=== PATIENT | female | born 1935 | race Two or more races ===

== ENCOUNTER 2017-03-28 16:09 | Inpatient (IN) | payer MEDICARE, MEDICAID ==
[~2017-03-28] VITALS: Ht 154.9 cm; Wt 58.1 kg
[2017-03-28] MEDS ORDERED: Cefepime HCl 1 GM in NS 55 ML IV SCH (16:30)
[2017-03-28] MEDS ORDERED: Vancomycin 750 MG in NS 275 ML IVPB ONE (16:30)
[2017-03-28] MEDS ORDERED: Vancomycin 750mg Inj IVPB ONE (17:02)
[2017-03-28 17:07] LABS: BASOPHILS % (AUTO) 0.7 % (0.0-2.0); EOSINOPHILS % (AUTO) 2.1 % (0.0-3.0); LYMPHOCYTES % (AUTO) 33.4 % (20.0-45.0); MEAN CORPUSCULAR HEMOGLOBIN 29.8 PG (27.0-31.0); MEAN CORPUSCULAR HGB CONC 31.7 G/DL (32.0-36.0); MEAN CORPUSCULAR VOLUME 94 FL (80-99); MEAN PLATELET VOLUME 5.6 FL (6.5-10.1); MONOCYTES % (AUTO) 8.5 % (1.0-10.0); NEUTROPHILS % (AUTO) 55.2 % (45.0-75.0); PLATELET COUNT 244 K/UL (150-450); RED BLOOD COUNT 3.64 M/UL (4.20-5.40); WHITE BLOOD COUNT 7.2 K/UL (4.8-10.8)
[2017-03-28] MEDS ORDERED: OMEPRAZOLE20 M3 ORAL (17:07)
[2017-03-28] MEDS ORDERED: PRO-STAT LIQUID30 ML ORAL (17:07)
[2017-03-28] MEDS ORDERED: ACETAMINOPHEN325 M1 ORAL (17:07)
[2017-03-28] MEDS ORDERED: ASCORBIC ACID500 MG ORAL (17:07)
[2017-03-28] MEDS ORDERED: SINEMET 25-1001 EAC1 ORAL (17:10)
[2017-03-28] MEDS ORDERED: PROPRANOLOL HCL20 MG ORAL (17:10)
[2017-03-28] MEDS ORDERED: LINZESS290 MCG PO (17:10)
[2017-03-28] MEDS ORDERED: SEROQUEL25 MG ORAL ×2 (17:10→17:19)
[2017-03-28] MEDS ORDERED: LOVENOX10 M1 SUBQ (17:10)
[2017-03-28] MEDS ORDERED: lidocaine 5% TOPIC (17:10)
[2017-03-28] MEDS ORDERED: PANTOPRAZOLE SO40 MG ORAL (17:13)
[2017-03-28] MEDS ORDERED: CALCIUM + D3 E1 EACH PO (17:13)
[2017-03-28] MEDS ORDERED: VITAMIN B-12500 MCG ORAL (17:13)
[2017-03-28] MEDS ORDERED: DONEPEZIL HCL10 M2 ORAL (17:13)
[2017-03-28] MEDS ORDERED: CARBAMAZEPINE200 MG ORAL (17:13)
[2017-03-28 17:14] LABS: APPEARANCE,URINE CLEAR; KETONES,URINE 1+ (NEGATIVE); LEUKOCYTE ESTERASE ,URINE 3+ (NEGATIVE); NITRITE,URINE POSITIVE (NEGATIVE); PH,URINE 6 (4.5-8.0); PROTEIN,URINE 2+ (NEGATIVE); UROBILINOGEN,URINE NORMAL MG/DL (0.0-1.0)
[2017-03-28] MEDS ORDERED: MULTI-VITAMIN-1 EACH PO (17:14)
[2017-03-28] MEDS ORDERED: VITAMIN D250000 UNI1 ORAL (17:14)
[2017-03-28] MEDS ORDERED: CRESTOR10 M2 ORAL (17:15)
[2017-03-28 17:16] LABS: PROTHROMBIN TIME 10.6 SEC (9.30-11.50); TROPONIN I < 0.30 ng/mL (<=0.30)
[2017-03-28] MEDS ORDERED: BISACODYL10 M1 RC (17:17)
[2017-03-28] MEDS ORDERED: MILK OF MA400 MG/51 ORAL (17:17)
[2017-03-28] MEDS ORDERED: IMITREX50 MG ORAL (17:17)
[2017-03-28] MEDS ORDERED: ALPRAZOLAM0.25 MG ORAL (17:19)
[2017-03-28] MEDS ORDERED: NORCO 5-325 TA1 EAC1 ORAL (17:19)
[2017-03-28 17:25] LABS: BACTERIA,URINE MODERATE /HPF; SQUAMOUS EPITHELIAL CELL,UR FEW /LPF (NONE/OCC)
[2017-03-28 17:26] LABS: AMORPHOUS SEDIMENT,UR FEW /LPF
[2017-03-28 17:41] LABS: ALANINE AMINOTRANSFERASE 5 U/L (3-33); ALBUMIN/GLOBULIN RATIO 0.9 (1.0-2.7); ANION GAP 14 (5-15); ASPARTATE AMINO TRANSFERASE 17 U/L (5-40); CALCIUM 8.4 mg/dL (8.6-10.2); CARBON DIOXIDE 27 mEQ/L (20-30); CHLORIDE 100 mEQ/L (98-107); CREATININE 0.6 mg/dL (0.5-0.9); HEMOLYSIS 21; POTASSIUM 4.3 mEQ/L (3.4-4.9); SODIUM 141 mEQ/L (135-145)
[2017-03-28] MEDS ORDERED: LORazepam Inj 2mg/ml 1ml IV ONE (17:45)
[2017-03-28 17:52] LABS: CKMB < 1.5 ng/mL (< 3.8)
[2017-03-28 18:22] VITALS: BP_SYST 111; BP_SYST 134; BP_DIAS 57; BP_DIAS 66
[2017-03-28 19:46] VITALS: BP 140/65
--- NOTE | 2017-03-28 19:52 | Emergency Room Report ---
History of Present Illness General Chief Complaint: Generalized Weakness Source: Medical Record, EMS Present Illness HPI The patient is brought in for altered mentation, failure to thrive and possible infection. [facility] 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 She is disoriented which appears to be her baseline. She has a chronic indwelling Hernández catheter. She is not coughing at this time. Further history is unavailable except for the medical record. Allergies: Coded Allergies: GABAPENTIN (Unverified Allergy, Unknown, 03/28/17) PRAMIPEXOLE (Unverified Allergy, Unknown, 03/28/17) Uncoded Allergies: NEURPO (Allergy, Unknown, 03/28/17) Patient History Limited by: medical condition Past Medical History: see triage record Social History Narrative SNF Reviewed Nursing Documentation: PMH: Agreed, PSxH: Agreed Nursing Documentation-PMH Past Medical History: No History, Except For Hx Hypertension: Yes Review of Systems All Other Systems: limited Physical Exam Vital Signs Date Time Temp Pulse Resp B/P Pulse Ox O2 Delivery O2 Flow Rate FiO2 03/28/17 16:05 98.6 80 16 111/66 93 Room Air Sp02 EP Interpretation: reviewed, abnormal - interpreted as low by me General Appearance: alert, Chronically Ill Head: normocephalic Eyes: bilateral eye PERRL, bilateral eye normal inspection ENT: moist mucus membranes Neck: supple Respiratory: lungs clear, normal breath sounds Cardiovascular #1: regular rate, rhythm Cardiovascular #2: 2+ radial (R) Gastrointestinal: normal inspection, normal bowel sounds, non tender, no mass, non-distended Genitourinary: other - hernández Musculoskeletal: back normal, gait/station normal, normal range of motion Neurologic: alert, motor strength/tone normal - UE, speech normal, motor weakness - LE, other - resting tremor, loquatious Psychiatric: anxious Skin: normal inspection, warm/dry Medical Decision Making Diagnostic Impression: Primary Impression: UTI (urinary tract infection) Qualified Codes: N30.00 - Acute cystitis without hematuria Additional Impression: Failure to thrive Qualified Codes: R62.7 - Adult failure to thrive ER Course The patient was sent to the hospital for alleged failure to thrive. Differential includes acute myocardial infarction, likely abnormality,, occult infection, exacerbation of dementia amongst others. Evaluation will be undertaken with EKG, chest x-ray labs including blood cultures lactate with urinalysis. The patient will receive IV hydration. The patient is quite agitated and Ativan is given. She's calmer after receiving Ativan. EKG is unremarkable. Labs reveal a white count and alert CXR no infiltrate. Discussed with Dr. Hennessy. Admit med. Laboratory Tests Test 03/28/17 16:35 White Blood Count 7.2 K/UL (4.8-10.8) Red Blood Count 3.64 M/UL (4.20-5.40) L Hemoglobin 10.8 G/DL (12.0-16.0) L Hematocrit 34.2 % (37.0-47.0) L Mean Corpuscular Volume 94 FL (80-99) Mean Corpuscular Hemoglobin 29.8 PG (27.0-31.0) Mean Corpuscular Hemoglobin Concent 31.7 G/DL (32.0-36.0) L Red Cell Distribution Width 15.0 % (11.6-14.8) H Platelet Count 244 K/UL (150-450) Mean Platelet Volume 5.6 FL (6.5-10.1) L Neutrophils (%) (Auto) 55.2 % (45.0-75.0) Lymphocytes (%) (Auto) 33.4 % (20.0-45.0) Monocytes (%) (Auto) 8.5 % (1.0-10.0) Eosinophils (%) (Auto) 2.1 % (0.0-3.0) Basophils (%) (Auto) 0.7 % (0.0-2.0) Prothrombin Time 10.6 SEC (9.30-11.50) Prothrombin Time INR 1.0 (0.9-1.1) PTT 29 SEC (23-33) Urine Color Yellow Urine Appearance Clear Urine pH 6 (4.5-8.0) Urine Specific [place] 1.020 (1.005-1.035) Urine Protein 2+ (NEGATIVE) H Urine Glucose (UA) Negative (NEGATIVE) Urine Ketones 1+ (NEGATIVE) H Urine Occult Blood 2+ (NEGATIVE) H Urine Nitrite Positive (NEGATIVE) H Urine Bilirubin Negative (NEGATIVE) Urine Urobilinogen Normal MG/DL (0.0-1.0) Urine Leukocyte Esterase 3+ (NEGATIVE) H Urine RBC 5-10 /HPF (0 - 2) H Urine WBC 10-15 /HPF (0 - 2) H Urine Squamous Epithelial Cells Few /LPF (NONE/OCC) Urine Amorphous Sediment Few /LPF (NONE) H Urine Bacteria Moderate /HPF (NONE) H Sodium Level 141 mEQ/L (135-145) Potassium Level 4.3 mEQ/L (3.4-4.9) Chloride Level 100 mEQ/L (98-107) Carbon Dioxide Level 27 mEQ/L (20-30) Anion Gap 14 (5-15) Blood Urea Nitrogen 16 mg/dL (7-23) Creatinine 0.6 mg/dL (0.5-0.9) Estimate Glomerular Filtration Rate mL/min (>60) Glucose Level 105 mg/dL (74-106) Lactic Acid Level 1.10 mmol/L (0.66-2.22) Calcium Level 8.4 mg/dL (8.6-10.2) L Total Bilirubin 0.2 mg/dL (0.0-1.2) Aspartate Amino Transferase (AST) 17 U/L (5-40) Alanine Aminotransferase (ALT) 5 U/L (3-33) Alkaline Phosphatase 150 U/L (35-104) H Total Creatine Kinase 37 U/L (26-140) Creatine Kinase MB < 1.5 ng/mL (< 3.8) Creatine Kinase MB Relative Index Troponin I < 0.30 ng/mL (<=0.30) Pro-B-Type Natriuretic Peptide 692 pg/mL (0-450) H Total Protein 6.0 g/dL (6.6-8.7) L Albumin 2.9 g/dL (3.5-5.2) L Globulin 3.1 g/dL Albumin/Globulin Ratio 0.9 (1.0-2.7) L EKG Diagnostic Results Rate: normal Rhythm: NSR ST Segments: no acute changes - LASD RBBB Rhythm Strip Diag. Results EP Interpretation: yes Rhythm: NSR, no PVC's, no ectopy Chest X-Ray Diagnostic Results Chest X-Ray Ordered: Yes # of Views/Limited/Complete: 1 View EP Interpretation: Yes Interpretation: no consolidation, no effusion, no pneumothorax, no acute cardiopulmonary disease, other - increased cor Indication: Other Impression: Other Interpreting ER Provider: [place] Last Vital Signs Date Time Temp Pulse Resp B/P Pulse Ox O2 Delivery O2 Flow Rate FiO2 03/28/17 22:04 98.6 66 15 172/76 97 Room Air Status: improved Disposition: ADMITTED INPATIENT Condition: Serious Referrals: LEOPOLDO RUIZ (PCP) Tadeo Fragoso M.D. Mar 28, 2017 19:52
[2017-03-28] MEDS ORDERED: DOCUSATE SODIU100 MG ORAL (20:41)
[2017-03-28] MEDS ORDERED: SUMAtriptan 100mg tab ORAL PRN (20:45)
[2017-03-28] MEDS ORDERED: Miralax 17gm pkt ORAL PRN (20:45)
[2017-03-28] MEDS ORDERED: Milk of Magnesia 30ml Ud ORAL PRN (20:45)
[2017-03-28] MEDS ORDERED: ALPRAZolam 0.25mg tab ORAL PRN (20:45)
--- NOTE | 2017-03-28 20:49 | History and Physical ---
History of Present Illness General Date patient seen: Mar 28, 2017 Time patient seen: 20:49 Reason for Hospitalization: AMS, generalized weakness Present Illness HPI 81 year oldfemalewith pmh of HTN, Parkinson's disease, dementia, chronic b/l lower back pain w/ R sided sciatica, myofascial pain, lumbar radiculopathy, recent R femoral neck fracture s/p R total hip replacement (02/24/17), DVT (on lovenox) who presents form SNF with AMS and generalized weakness. Pt denies pain. She is noted to be confused, only A&Ox1 to name. Pt with chronic indwelling hernández catheter. No reports of SOB, abd pain, cough, f/c, n/v, d/c. Pt noted to be increasingly weak. Pt also w/ multiple pressure ulcers. In ED, pt noted to have positive U/A. She was given vanco, cefepime and levaquin , as well as 1L NS bolus. Allergies: Coded Allergies: GABAPENTIN (Unverified Allergy, Unknown, 03/28/17) PRAMIPEXOLE (Unverified Allergy, Unknown, 03/28/17) Uncoded Allergies: NEURPO (Allergy, Unknown, 03/28/17) Medication History Scheduled Amino Acids/Protein Hydrolys (Pro-Stat Liquid), 30 ML ORAL TID, (Reported) Ascorbic Acid* (Ascorbic Acid*), 500 MG ORAL TWICE A DAY, (Reported) Calcium Carb & Cit/Vitamin D3 (Calcium + D3 Er Tablet), 1 EACH PO DAILY, ( Reported) Carbamazepine* (Carbamazepine*), 200 MG ORAL DAILY, (Reported) Carbidopa/Levodopa 25-100 Mg* (Sinemet 25-100 Mg Tablet*), 1.5 TAB ORAL THREE TIMES A DAY, (Reported) Cyanocobalamin (Vitamin B-12)* (Vitamin B-12*), 1,000 MCG ORAL DAILY, (Reported) Docusate Sodium* (Docusate Sodium*), 100 MG ORAL TWICE A DAY, (Reported) Donepezil Hcl* (Donepezil Hcl*), 10 MG ORAL DAILY, (Reported) Enoxaparin* (Lovenox*), 60 MG SUBQ EVERY 12 HOURS, (Reported) Ergocalciferol (Vitamin D2)* (Vitamin D*), 50,000 UNIT ORAL ONCE A WEEK, ( Reported) Multivit-Min/Iron Fum/Folic AC (Wasij-Iwcejww-Dlyxvilk Tablet), 1 EACH PO DAILY, (Reported) Omeprazole (Omeprazole), 20 MG ORAL DAILY, (Reported) Pantoprazole* (Pantoprazole*), 40 MG ORAL DAILY, (Reported) Propranolol Hcl* (Inderal*), 20 MG ORAL BID, (Reported) Quetiapine Fumarate* (Seroquel*), 25 MG ORAL BEDTIME, (Reported) Rosuvastatin Calcium* (Crestor*), 10 MG ORAL DAILY, (Reported) [lidocaine 5%], 2 PATCH TOPIC DAILY, (Reported) Scheduled PRN Acetaminophen* (Acetaminophen 325MG Tablet*), 650 MG ORAL Q6H PRN for For Pain, (Reported) Alprazolam* (Xanax*), 0.25 MG ORAL BID PRN for For Anxiety, (Reported) Bisacodyl (Bisacodyl), 10 MG RC DAILY PRN for Constipation, (Reported) Hydrocodone Bit/Acetaminophen 5-325* ([place] 5-325 Tablet*), 1 TAB ORAL Q4H PRN for For Pain, (Reported) Linaclotide (Linzess), 290 MCG PO DAILY PRN for Constipation, (Reported) Magnesium Hydroxide* (Milk Of Magnesia*), 30 ML ORAL DAILY PRN for Constipation, (Reported) Quetiapine Fumarate* (Seroquel*), 25 MG ORAL THREE TIMES A DAY PRN for Agitation , (Reported) Sumatriptan Succinate* (Imitrex*), 10 MG ORAL DAILY PRN for MIGRAINE, (Reported) Patient History History Provided By: Patient, Medical Record, PMD Healthcare decision maker Resuscitation status Advanced Directive on File Past Medical/Surgical History Past Medical/Surgical History: (1) Parkinson disease (2) Dementia (3) Fracture of femoral neck, right (4) History of total right hip replacement (5) HTN (hypertension) (6) DVT (deep vein thrombosis) in Family History Family History: Patient reports no known family medical history. Social History Social History: (1) lives at [facility] Review of Systems ROS Narrative Unable to obtain given AMS Physical Exam Physical Exam Narrative General: alert, cooperative, no distress, appears stated age Head: normocephalic, without obvious abnormality, atraumatic Eyes: conjunctivae/corneas clear. PERRL, EOM's intact Throat: lips, mucosa, and tongue normal. MMM Neck: supple, symmetrical, trachea midline, and no JVD Lungs: clear to auscultation bilaterally Heart: regular rate and rhythm, S1, S2 normal, no murmur, click, rub or gallop Abdomen: soft, non-tender, non-distended, bowel sounds normal; no masses or organomegaly Extremities: extremities normal, atraumatic, no cyanosis or edema : +hernández Pulses: 2+ and symmetric Skin: skin color, texture, turgor normal; no rashes or lesions Neurologic: grossly normal, no focal deficits Last 24 Hour Vital Signs Date Time Temp Pulse Resp B/P Pulse Ox O2 Delivery O2 Flow Rate FiO2 03/28/17 19:46 98.6 72 18 140/65 97 Room Air 03/28/17 18:22 98.7 73 16 134/57 99 Room Air 03/28/17 16:05 98.6 80 16 111/66 93 Room Air Laboratory Tests Test 03/28/17 16:35 White Blood Count 7.2 K/UL (4.8-10.8) Red Blood Count 3.64 M/UL (4.20-5.40) L Hemoglobin 10.8 G/DL (12.0-16.0) L Hematocrit 34.2 % (37.0-47.0) L Mean Corpuscular Volume 94 FL (80-99) Mean Corpuscular Hemoglobin 29.8 PG (27.0-31.0) Mean Corpuscular Hemoglobin Concent 31.7 G/DL (32.0-36.0) L Red Cell Distribution Width 15.0 % (11.6-14.8) H Platelet Count 244 K/UL (150-450) Mean Platelet Volume 5.6 FL (6.5-10.1) L Neutrophils (%) (Auto) 55.2 % (45.0-75.0) Lymphocytes (%) (Auto) 33.4 % (20.0-45.0) Monocytes (%) (Auto) 8.5 % (1.0-10.0) Eosinophils (%) (Auto) 2.1 % (0.0-3.0) Basophils (%) (Auto) 0.7 % (0.0-2.0) Prothrombin Time 10.6 SEC (9.30-11.50) Prothromb Time International Ratio 1.0 (0.9-1.1) Activated Partial Thromboplast Time 29 SEC (23-33) Urine Color Yellow Urine Appearance Clear Urine pH 6 (4.5-8.0) Urine Specific [place] 1.020 (1.005-1.035) Urine Protein 2+ (NEGATIVE) H Urine Glucose (UA) Negative (NEGATIVE) Urine Ketones 1+ (NEGATIVE) H Urine Occult Blood 2+ (NEGATIVE) H Urine Nitrite Positive (NEGATIVE) H Urine Bilirubin Negative (NEGATIVE) Urine Urobilinogen Normal MG/DL (0.0-1.0) Urine Leukocyte Esterase 3+ (NEGATIVE) H Urine RBC 5-10 /HPF (0 - 2) H Urine WBC 10-15 /HPF (0 - 2) H Urine Squamous Epithelial Cells Few /LPF (NONE/OCC) Urine Amorphous Sediment Few /LPF (NONE) H Urine Bacteria Moderate /HPF (NONE) H Sodium Level 141 mEQ/L (135-145) Potassium Level 4.3 mEQ/L (3.4-4.9) Chloride Level 100 mEQ/L (98-107) Carbon Dioxide Level 27 mEQ/L (20-30) Anion Gap 14 (5-15) Blood Urea Nitrogen 16 mg/dL (7-23) Creatinine 0.6 mg/dL (0.5-0.9) Estimat Glomerular Filtration Rate mL/min (>60) Glucose Level 105 mg/dL (74-106) Lactic Acid Level 1.10 mmol/L (0.66-2.22) Calcium Level 8.4 mg/dL (8.6-10.2) L Total Bilirubin 0.2 mg/dL (0.0-1.2) Aspartate Amino Transf (AST/SGOT) 17 U/L (5-40) Alanine Aminotransferase (ALT/SGPT) 5 U/L (3-33) Alkaline Phosphatase 150 U/L (35-104) H Total Creatine Kinase 37 U/L (26-140) Creatine Kinase MB < 1.5 ng/mL (< 3.8) Creatine Kinase MB Relative Index Troponin I < 0.30 ng/mL (<=0.30) Pro-B-Type Natriuretic Peptide 692 pg/mL (0-450) H Total Protein 6.0 g/dL (6.6-8.7) L Albumin 2.9 g/dL (3.5-5.2) L Globulin 3.1 g/dL Albumin/Globulin Ratio 0.9 (1.0-2.7) L Height (Feet): 5 Height (Inches): 1.00 Weight (Pounds): 110 Medications Current Medications Medications (Trade) Dose Ordered Sig/Jennifer Route PRN Reason Start Time Stop Time Status Last Admin Dose Admin Acetaminophen (Tylenol) 650 mg Q4H PRN ORAL Mild Pain (Pain Scale 1-3) 03/28/17 20:45 04/27/17 20:44 UNV Acetaminophen/ Hydrocodone Bitart ([place] 5/325) 1 tab Q4H PRN ORAL For Pain 03/28/17 20:45 04/04/17 20:44 UNV Alprazolam (Xanax) 0.25 mg BID PRN ORAL For Anxiety 03/28/17 20:45 04/04/17 20:44 UNV Ascorbic Acid (Vitamin C) 500 mg TWICE A DAY ORAL 03/29/17 09:00 04/28/17 08:59 UNV Bisacodyl (Dulcolax) 10 mg DAILY PRN RECTAL Constipation 03/28/17 20:45 04/27/17 20:44 UNV Bisacodyl (Dulcolax) 10 mg HSPRN PRN RECTAL Constipation 03/28/17 20:45 04/27/17 20:44 UNV Carbamazepine (TEGretol) 200 mg DAILY ORAL 03/29/17 09:00 04/28/17 08:59 UNV Carbidopa/Levodopa (Sinemet 25/100) 1 ea THREE TIMES A DAY ORAL 03/28/17 20:45 04/27/17 20:44 UNV Cefepime HCl 1 gm/ Sodium Chloride 55 ml @ 110 mls/hr Q12H IV 03/28/17 16:30 03/29/17 16:29 Cyanocobalamin (Vitamin B-12) 1,000 mcg DAILY ORAL 03/29/17 09:00 04/28/17 08:59 UNV Dextrose (Dextrose 50%) STAT PRN IV Hypoglycemia 03/28/17 20:45 04/27/17 20:44 UNV Docusate Sodium (Colace) 100 mg EVERY 12 HOURS ORAL 03/28/17 21:00 04/27/17 20:59 UNV Donepezil HCl (Aricept) 10 mg DAILY ORAL 03/29/17 09:00 04/28/17 08:59 UNV Enoxaparin Sodium (Lovenox) 60 mg EVERY 12 HOURS SUBQ 03/28/17 21:00 04/27/17 20:59 UNV Magnesium Hydroxide (Mom) 30 ml HSPRN PRN ORAL Constipation 03/28/17 20:45 04/27/17 20:44 UNV Ondansetron HCl (Zofran) 4 mg Q6H PRN IVP Nausea & Vomiting 03/28/17 20:45 04/27/17 20:44 UNV Pantoprazole (Protonix) 40 mg DAILY ORAL 03/29/17 09:00 04/28/17 08:59 UNV Polyethylene Glycol (Miralax) 17 gm HSPRN PRN ORAL Constipation 03/28/17 20:45 04/27/17 20:44 UNV Propranolol HCl (Inderal) 20 mg BID ORAL 03/29/17 09:00 04/28/17 08:59 UNV Quetiapine Fumarate (SEROquel) 25 mg BEDTIME ORAL 03/28/17 21:00 04/27/17 20:59 UNV Quetiapine Fumarate (SEROquel) 25 mg THREE TIMES A DAY PRN ORAL Agitation 03/28/17 20:45 04/27/17 20:44 UNV Sodium Chloride (Sodium Chloride 1000ml bag) 1,000 ml @ 300 mls/hr Q3H20M IV 03/28/17 16:30 04/27/17 16:29 03/28/17 17:03 Sumatriptan Succinate (Imitrex) 10 mg DAILY PRN ORAL MIGRAINE 03/28/17 20:45 04/27/17 20:44 UNV Assessment/Plan Problem List: (1) Acute toxic metabolic encephalopathy (2) UTI (urinary tract infection) ICD Codes: N39.0 - Urinary tract infection, site not specified SNOMED: 21910261 Qualifiers: Qualified Codes: N30.00 - Acute cystitis without hematuria (3) Failure to thrive SNOMED: 74902238 Qualifiers: Qualified Codes: R62.7 - Adult failure to thrive (4) Parkinson disease ICD Codes: G20 - Parkinson's disease SNOMED: 82707522 (5) Dementia ICD Codes: F03.90 - Unspecified dementia without behavioral disturbance SNOMED: 04344215 (6) HTN (hypertension) ICD Codes: I10 - Essential (primary) hypertension SNOMED: 57140853 (7) DVT (deep venous thrombosis) ICD Codes: I82.409 - Acute embolism and thrombosis of unspecified deep veins of unspecified lower extremity SNOMED: 699566647 Status: stable Assessment/Plan Admit inpt Cont empiric cefepime for UTI F/u urine culture F/u blood cultures Monitor mental status and neuro exam closely Check TSH, B12/folate, Vitamin D, Prealbumin PT/OT/ST Swallow eval Nutrition eval Wound care DVT Prophylaxis: SCD, Lovenox Code Status: Full Hospital Classification Declaration: Based on this initial evaluation, and depending on the patient's clinical course, I anticipate that this patient will require hospitalization for 2-3 days for AMS, FTT, UTI and close respiratory/ hemodynamic monitoring. Disposition: Once the patient is stable to leave the hospital, I anticipate the patient will likely be discharged to the following environment: back to SNF I spent 72 minutes on this patient's case, and 40 minutes were dedicated to counseling and/or care coordination. Discussed with patient/family, nursing staff, SW/CM, ED physician regarding clinical status, treatment course, and disposition planning. Time of note may not reflect time of encounter. Minoo Ryan M.D. Mar 28, 2017 20:49
[2017-03-28 21:30] VITALS: BP 172/76
[2017-03-28] MEDS ORDERED: Tubing IV Cassette IV ONE (21:37)
[2017-03-28] MEDS ORDERED: NS 55 ML IV ONE (21:37)
[2017-03-28] MEDS ORDERED: Cefepime 1gm vial ONE (21:37)
[2017-03-28] MEDS: Docusate 100mg cap ORAL SCH (23:50)
[2017-03-28] MEDS: Sinemet 25/100 tab ORAL SCH (23:50)
[2017-03-28] MEDS: Enoxaparin Sodium 300mg/3ml vial SUBQ SCH (23:52)
[2017-03-29] VITALS (8 sets, daily range): BP systolic 89–172; BP diastolic 56–105
[2017-03-29 08:14] LABS: BASOPHILS % (AUTO) 0.4 % (0.0-2.0); EOSINOPHILS % (AUTO) 3.4 % (0.0-3.0); LYMPHOCYTES % (AUTO) 36.6 % (20.0-45.0); MEAN CORPUSCULAR HEMOGLOBIN 30.3 PG (27.0-31.0); MEAN CORPUSCULAR HGB CONC 31.8 G/DL (32.0-36.0); MEAN CORPUSCULAR VOLUME 95 FL (80-99); MEAN PLATELET VOLUME 5.9 FL (6.5-10.1); MONOCYTES % (AUTO) 11.3 % (1.0-10.0); NEUTROPHILS % (AUTO) 48.3 % (45.0-75.0); PLATELET COUNT 206 K/UL (150-450); RED BLOOD COUNT 3.34 M/UL (4.20-5.40); RED CELL DISTRIBUTION WIDTH 15.4 % (11.6-14.8); WHITE BLOOD COUNT 5.5 K/UL (4.8-10.8)
[2017-03-29 08:38] LABS: ALANINE AMINOTRANSFERASE 5 U/L (3-33); ALBUMIN/GLOBULIN RATIO 0.9 (1.0-2.7); ANION GAP 10 (5-15); ASPARTATE AMINO TRANSFERASE 12 U/L (5-40); CALCIUM 8.5 mg/dL (8.6-10.2); CARBON DIOXIDE 29 mEQ/L (20-30); CHLORIDE 103 mEQ/L (98-107); CREATININE 0.5 mg/dL (0.5-0.9); HEMOLYSIS 2; MAGNESIUM 1.8 mg/dL (1.7-2.5); POTASSIUM 3.7 mEQ/L (3.4-4.9); SODIUM 142 mEQ/L (135-145); TOTAL PROTEIN 5.5 g/dL (6.6-8.7)
[2017-03-29] MEDS: Vitamin B-12 500mcg tab ORAL SCH (09:33)
[2017-03-29] MEDS: Docusate 100mg cap ORAL SCH ×2 (09:33→21:01)
[2017-03-29] MEDS: Donepezil 10mg tab ORAL SCH (09:33)
[2017-03-29] MEDS: Ascorbic Acid 500mg tab ORAL SCH ×2 (09:33→18:00)
[2017-03-29] MEDS: Sinemet 25/100 tab ORAL SCH ×3 (09:49→18:00)
[2017-03-29] MEDS: carBAMazepine 200mg tab ORAL SCH (10:31)
[2017-03-29] MEDS: Enoxaparin Sodium 300mg/3ml vial SUBQ SCH ×2 (10:34→22:25)
--- NOTE | 2017-03-29 13:53 | Diagnostic Imaging Report ---
Indication: Shortness of breath Technique: One view of the chest Comparison: none Findings: There is elevation left diaphragm. Lungs and pleural spaces are clear. The heart is borderline enlarged. Aorta is calcified. Impression: No acute process Elevated left hemidiaphragm This agrees with the preliminary interpretation provided by the emergency room physician
[2017-03-29] MEDS ORDERED: Haloperidol 5mg/ml Inj IM PRN (14:30)
[2017-03-29] MEDS ORDERED: Cefepime HCl 1 GM in D5W 55 ML IVPB SCH (21:00)
[2017-03-29] MEDS: Propranolol 10mg tab ORAL SCH (23:14)
[2017-03-30 04:00] VITALS: BP 148/77
--- NOTE | 2017-03-30 05:12 | General Progress Note ---
Assessment/Plan Problem List: (1) Acute toxic metabolic encephalopathy (2) UTI (urinary tract infection) ICD Codes: N39.0 - Urinary tract infection, site not specified SNOMED: 27167617 Qualifiers: Qualified Codes: N30.00 - Acute cystitis without hematuria (3) Failure to thrive SNOMED: 10188306 Qualifiers: Qualified Codes: R62.7 - Adult failure to thrive (4) Parkinson disease ICD Codes: G20 - Parkinson's disease SNOMED: 36760913 (5) Dementia ICD Codes: F03.90 - Unspecified dementia without behavioral disturbance SNOMED: 99592629 (6) HTN (hypertension) ICD Codes: I10 - Essential (primary) hypertension SNOMED: 67862629 (7) DVT (deep venous thrombosis) ICD Codes: I82.409 - Acute embolism and thrombosis of unspecified deep veins of unspecified lower extremity SNOMED: 428212785 Status: stable Assessment/Plan Cont empiric cefepime for UTI F/u urine culture-->100K GNR F/u blood cultures Monitor mental status and neuro exam closely Neurology consulted Psych consulted F/u Vitamin D PT/OT Swallow eval--PUREED, LIKE NECTAR THICK SOUP CONSISTENCY WITH NECTAR THICK LIQUIDS Nutrition eval Wound care DVT Prophylaxis: SCD, Lovenox Code Status: Full Hospital Classification Declaration: Based on this initial evaluation, and depending on the patient's clinical course, I anticipate that this patient will require hospitalization for 2-3 days for AMS, FTT, UTI and close respiratory/ hemodynamic monitoring. Disposition: Once the patient is stable to leave the hospital, I anticipate the patient will likely be discharged to the following environment: back to SNF I spent 38 minutes on this patient's case, and >50% were dedicated to counseling and/or care coordination. Discussed with patient/family, nursing staff, SW/CM regarding clinical status, treatment course, and disposition planning. D/w SW re code status Time of note may not reflect time of encounter. Subjective Date patient seen: Mar 29, 2017 Time patient seen: 13:00 ROS Limited/Unobtainable: Yes Allergies: Coded Allergies: GABAPENTIN (Unverified Allergy, Unknown, 03/28/17) PRAMIPEXOLE (Unverified Allergy, Unknown, 03/28/17) Uncoded Allergies: NEURPO (Allergy, Unknown, 03/28/17) All Systems: reviewed and negative except above - Unable to obtain given AMS Subjective Pt cont to be confused, agitated. Pulled out hernández and IV Noted to have depressed mood. Stated that her family never visits her D/w SW and family. Pt now DNR/DNI Objective Last 24 Hour Vital Signs Date Time Temp Pulse Resp B/P Pulse Ox O2 Delivery O2 Flow Rate FiO2 03/29/17 23:14 82 172/99 03/29/17 21:00 97.8 84 18 159/84 91 Room Air 03/29/17 15:21 97.7 82 18 172/99 88 03/29/17 12:25 72 133/80 03/29/17 11:15 98.2 85 18 146/105 97 Room Air 03/29/17 08:03 97.0 50 14 155/85 96 Room Air 03/29/17 05:20 136/71 Intake and Output 03/29/17 03/30/17 19:00 07:00 Intake Total 270 ml Balance 270 ml Intake Oral 270 ml # Voids 4 Laboratory Tests 03/29/17 07:05: White Blood Count 5.5, Red Blood Count 3.34L, Hemoglobin 10.1L, Hematocrit 31.8L , Mean Corpuscular Volume 95, Mean Corpuscular Hemoglobin 30.3, Mean Corpuscular Hemoglobin Concent 31.8L, Red Cell Distribution Width 15.4H, Platelet Count 206, Mean Platelet Volume 5.9L, Neutrophils (%) (Auto) 48.3, Lymphocytes (%) (Auto) 36.6, Monocytes (%) (Auto) 11.3H, Eosinophils (%) (Auto) 3.4H, Basophils (%) (Auto) 0.4, Sodium Level 142, Potassium Level 3.7, Chloride Level 103, Carbon Dioxide Level 29, Anion Gap 10, Blood Urea Nitrogen 12, Creatinine 0.5, Estimat Glomerular Filtration Rate , Glucose Level 81, Calcium Level 8.5L, Magnesium Level 1.8, Total Bilirubin 0.3, Aspartate Amino Transf ( AST/SGOT) 12, Alanine Aminotransferase (ALT/SGPT) 5, Alkaline Phosphatase 131H, Total Protein 5.5L, Albumin 2.7L, Globulin 2.8, Albumin/Globulin Ratio 0.9L, Prealbumin [Pending], Vitamin B12 Level 313, Vitamin D 25-Hydroxy [Pending], 25- Hydroxy Vitamin D2 [Pending], 25-Hydroxy Vitamin D3 [Pending], Folate [Pending] , Thyroid Stimulating Hormone (TSH) 2.020 Height (Feet): 5 Height (Inches): 1.00 Weight (Pounds): 113 Objective General: alert, cooperative, no distress, appears stated age, confused Head: normocephalic, without obvious abnormality, atraumatic Eyes: conjunctivae/corneas clear. PERRL, EOM's intact Throat: lips, mucosa, and tongue normal. MMM Neck: supple, symmetrical, trachea midline, and no JVD Lungs: clear to auscultation bilaterally Heart: regular rate and rhythm, S1, S2 normal, no murmur, click, rub or gallop Abdomen: soft, non-tender, non-distended, bowel sounds normal; no masses or organomegaly Extremities: extremities normal, atraumatic, no cyanosis or edema Pulses: 2+ and symmetric Skin: skin color, texture, turgor normal; no rashes or lesions Neurologic: grossly normal, no focal deficits Minoo Ryan M.D. Mar 30, 2017 05:12
[2017-03-30 07:46] VITALS: BP 158/95
[2017-03-30 09:37] LABS: BASOPHILS % (AUTO) 0.6 % (0.0-2.0); EOSINOPHILS % (AUTO) 0.9 % (0.0-3.0); LYMPHOCYTES % (AUTO) 20.5 % (20.0-45.0); MEAN CORPUSCULAR HEMOGLOBIN 29.7 PG (27.0-31.0); MEAN CORPUSCULAR HGB CONC 31.6 G/DL (32.0-36.0); MEAN CORPUSCULAR VOLUME 94 FL (80-99); MEAN PLATELET VOLUME 5.8 FL (6.5-10.1); MONOCYTES % (AUTO) 5.7 % (1.0-10.0); NEUTROPHILS % (AUTO) 72.3 % (45.0-75.0); PLATELET COUNT 239 K/UL (150-450); RED BLOOD COUNT 3.74 M/UL (4.20-5.40); RED CELL DISTRIBUTION WIDTH 14.7 % (11.6-14.8); WHITE BLOOD COUNT 7.5 K/UL (4.8-10.8)
[2017-03-30 09:51] LABS: ANION GAP 18 (5-15); CALCIUM 8.9 mg/dL (8.6-10.2); CARBON DIOXIDE 24 mEQ/L (20-30); CHLORIDE 98 mEQ/L (98-107); CREATININE 0.6 mg/dL (0.5-0.9); HEMOLYSIS 3; MAGNESIUM 1.7 mg/dL (1.7-2.5); POTASSIUM 3.6 mEQ/L (3.4-4.9); SODIUM 140 mEQ/L (135-145)
[2017-03-30] MEDS: Ascorbic Acid 500mg tab ORAL SCH ×2 (10:02→18:14)
[2017-03-30] MEDS: Propranolol 10mg tab ORAL SCH ×2 (10:02→18:14)
[2017-03-30] MEDS: carBAMazepine 200mg tab ORAL SCH (10:02)
[2017-03-30] MEDS: Docusate 100mg cap ORAL SCH ×2 (10:02→21:24)
[2017-03-30] MEDS: Sinemet 25/100 tab ORAL SCH ×3 (10:03→18:14)
[2017-03-30] MEDS: Vitamin B-12 500mcg tab ORAL SCH (10:03)
[2017-03-30] MEDS: Donepezil 10mg tab ORAL SCH (10:03)
[2017-03-30] MEDS: Enoxaparin Sodium 300mg/3ml vial SUBQ SCH (10:07)
[2017-03-30 11:35] VITALS: BP 116/71
[2017-03-30 15:36] VITALS: BP 136/71
--- NOTE | 2017-03-30 17:06 | Consultation ---
Consult Note Consult Note NEUROLOGY CONSULTATION: Full note dictated #[id number] 81 y/o, RH, CF with PH of HTN, PD, dementia, LS spine disease with lumbar polyradiculopathy, myofascial pain, recent R femoral neck fracture s/p R total hip replacement (02/24/17), and DVT (on lovenox) who presented form SNF with AMS, generalized weakness, and increased parkinsonian symptoms. She has since been Dx with a UTI and Rx. Patient want relief from her PS. ON EXAM: Problems with orientation. Problems with memory. B- LE weakness. Decreased DTRs in B-UE and loss of DTRs in B-LE. PS- Tremor, Rigidity, Bradykinesia, Hypomimia, Hypophonia IMPRESSION: Dementia old. PD poorly controlled. 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 REC: Continue present Rx. Rx of UTI. Increase Sinemet to 25/100 (2 tablets) q 7AM-12N-5PM Observe . João Caldera M.D., M.S.P.H. JOÃO CALDERA Mar 30, 2017 17:06
[2017-03-30 20:00] VITALS: BP 123/76
[2017-03-30] MEDS: Eliquis 2.5mg tablet ORAL SCH (21:24)
[2017-03-30] MEDS: ceFAZolin 500 MG in D5W 55 ML IVP SCH (21:25)
--- NOTE | 2017-03-30 21:32 | Consultation ---
DATE OF CONSULTATION: 03/30/2017 NEUROLOGY CONSULTATION CONSULTING PHYSICIAN: Gregory Caldera M.D. REQUESTING PHYSICIAN: Minoo Ryan M.D. HISTORY: Ms. Chely Moran is a 81-year-old, right-handed, lady, who does have a past history of hypertension, dementia, lumbosacral spine disease with lumbar polyradiculopathy as a result of which she has lost her ability to walk, Parkinson disease, myofascial pain syndrome, recent right femoral neck fracture with right total hip replacement in January 2017, and deep venous thrombosis for which she is on anticoagulation. She was functioning relatively well at her assisted until a few days ago when she started to have an altered mental state, became generally weak, and her parkinsonian symptoms increased. As a result of that, she was brought into the [facility] Emergency Room and has since been admitted. On being evaluated in the emergency room, she was noted to have a urinary tract infection. The urinary tract infection is being treated appropriately at this point in time. This consultation was requested to evaluate the patient from a neurological point of view for her parkinsonian syndrome and in addition her altered mental state. At this point in time, the patient is unable to give me any further history. PAST MEDICAL HISTORY: Significant for hypertension, dementia, lumbosacral spine disease with polyradiculopathy with loss of ability to walk, right hip fracture, DVT involving the lower extremities, and Parkinson disease for numerous years. FAMILY HISTORY: There is no family history of any neurological illness as per the chart. PERSONAL HISTORY: Home: She lives in assisted. Work: She is retired. Habits: None. PRESENT MEDICATIONS: Includes Eliquis, cefazolin, propranolol, cefepime, Haldol p.r.n., ascorbic acid, carbamazepine, vitamin B12, Aricept, pantoprazole, Sinemet 25/100 one tablet taken 3 times a day, Seroquel 25 mg at bedtime, Tylenol, Dulcolax, milk of magnesia, MiraLAX, Zofran, Xanax, Dowell p.r.n., and sumatriptan p.r.n. PHYSICAL EXAMINATION: GENERAL: She is a well-developed, well-nourished, pleasant lady, lying in bed, in no acute distress. VITAL SIGNS: Pulse 70 per minute, blood pressure 136/71 mmHg, respirations 15 per minute, and temperature 97.9 degrees Fahrenheit. HEAD: Normocephalic and atraumatic. EENT: Examination benign. NECK: No neck rigidity was observed. NEUROLOGIC EXAMINATION: MENTAL STATUS EXAMINATION: She was awake and alert. She was oriented to self and hospital. She did not know the name of the hospital and had no idea what the date, month, or year was. She was able to recall 3/3 words immediately, but could only remember 1/3 words in 1 minute and 3 minutes even on the second trial. She was unable to tell me, who the present President was and who prior presidents were. Her mathematical skills were impaired. SPEECH: She had a moderate dysarthria. LANGUAGE: She had an anomia. CRANIAL NERVE EXAMINATION: II: The visual dale were intact to confrontation testing. III, IV & : The external ocular movements were full and the pupils 3 mm in diameter, equal, round, regular, and reactive to light. V: She had normal facial sensations and the temporales, masseters, and pterygoids functioned normally. VII: She had normal facial expressions and no facial asymmetry. VIII: She was able to hear well bilaterally and had no nystagmus. IX: The palate moved symmetrically on phonation. X: She had no hoarseness of voice. XI: The sternocleidomastoids and trapezii functioned normally. XII: The tongue was in the midline without any fasciculations or atrophy. MOTOR SYSTEM: The tone was increased in all four extremities with a significant degree of rigidity. Examination of muscle mass revealed no focal wasting, but she did have generalized muscle wasting. Examination of power was exceedingly difficult to perform because of varying degrees of cooperation. She did however have approximately grade 5-/5 power in both upper extremities. In the lower extremities, power was more difficult to test because of give-way weakness, but she had approximately grade 3/5 power in the iliopsoas muscles, grade 4/5 power in the quadriceps, grade 4-/5 power in the hamstrings, and grade 4/5 power in the ankles and toes. SENSORY EXAMINATION: This was quite inaccurate and thus could not be of much use. REFLEXES: Trace+ and bilaterally symmetrical at the biceps, triceps, and brachioradialis and 0 at both knees, and ankles. Plantar responses were flexor bilaterally. COORDINATION: Lrtriz-cx-eqoh testing was tremulous, but could be performed. She was unable to perform bybq-bn-cyhy testing. STANCE & GAIT: Could not be tested. ABNORMAL MOVEMENTS: Tremor (4-5 Hz): G 3/4 in both upper extremities and G 2/4 in both lower extremities, Rigidity: G 3/4 Bradykinesia:G 3/4 Hypomimia:G 3/4 Hypophonia: G 3/4 DIAGNOSTIC IMPRESSION: 1. Ms. Chely Moran is a 81-year-old, right-handed, lady, who does have a past history of hypertension, dementia, lumbosacral spine disease with lumbosacral polyradiculopathy, myofascial pain syndrome, right femoral neck fracture status post total hip replacement, deep venous thrombosis involving the lower extremities, and a Parkinson disease, who was hospitalized for altered mental state, generalized weakness, and increased parkinsonian symptoms all related to a possible urinary tract infection. Since she has been here, she has been treated for a urinary tract infection. At this point in time, she feels that her parkinsonian symptoms are very uncomfortable and she would like some more medicine for them. 2. On neurological examination, at this time, she does have problems with orientation, recent and remote memory, higher cognitive function, and language. She also has significant lower extremity greater than upper extremity weakness, decreased deep tendon reflexes in the upper extremities with loss of deep tendon reflexes in the lower extremities, and a parkinsonian syndrome characterized by tremor, rigidity, bradykinesia, hypomimia, and hypophonia. 3. The patient's cognitive dysfunction is most probably related to her old dementia. 4. 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 5. Her Parkinson disease is poorly controlled at this point in time. RECOMMENDATIONS: 1. Agree with management thus far. 2. Agree with treating the patient's urinary tract infection in an aggressive manner. 3. Her dose of Sinemet should be increased to 25/100, two tablets to be taken at 7 a.m. and 12 noon and 5 p.m. 4. The patient will be observed closely and depending on how she fares over the next day or so, further recommendations will be given. Thank you for entrusting me with the care of Ms. Moran. I shall follow her with you. Gregory Caldera M.D., M.S.P.H. DR: LATASHA JOB#: [id number] MTDD
--- NOTE | 2017-03-30 22:00 | General Progress Note ---
Assessment/Plan Problem List: (1) Acute toxic metabolic encephalopathy (2) UTI (urinary tract infection) ICD Codes: N39.0 - Urinary tract infection, site not specified SNOMED: 85602109 Qualifiers: Qualified Codes: N30.00 - Acute cystitis without hematuria (3) Failure to thrive SNOMED: 13448793 Qualifiers: Qualified Codes: R62.7 - Adult failure to thrive (4) Parkinson disease ICD Codes: G20 - Parkinson's disease SNOMED: 73842525 (5) Dementia ICD Codes: F03.90 - Unspecified dementia without behavioral disturbance SNOMED: 52578774 (6) HTN (hypertension) ICD Codes: I10 - Essential (primary) hypertension SNOMED: 03681857 (7) DVT (deep venous thrombosis) ICD Codes: I82.409 - Acute embolism and thrombosis of unspecified deep veins of unspecified lower extremity SNOMED: 372822046 Status: stable Assessment/Plan Change to cefazolin (03/30-) s/p cefepime (03/28-03/30) F/u urine culture-->>100K SERRATIA FONTICOLA F/u blood cultures-->ngtd Monitor mental status and neuro exam closely Neurology consulted-->sinemet dose increased to 2 tabs TID Psych consulted F/u Vitamin D PT/OT Swallow eval--PUREED, LIKE NECTAR THICK SOUP CONSISTENCY WITH NECTAR THICK LIQUIDS Nutrition eval Wound care DVT Prophylaxis: SCD, Eliquis Code Status: Full Hospital Classification Declaration: Based on this initial evaluation, and depending on the patient's clinical course, I anticipate that this patient will require hospitalization for 1-2 days for AMS, FTT, UTI and close respiratory/ hemodynamic monitoring. Disposition: Once the patient is stable to leave the hospital, I anticipate the patient will likely be discharged to the following environment: back to SNF I spent 40 minutes on this patient's case, and >50% were dedicated to counseling and/or care coordination. Discussed with patient/family, nursing staff, SW/CM regarding clinical status, treatment course, and disposition planning. D/w SW re code status Time of note may not reflect time of encounter. Subjective Date patient seen: Mar 30, 2017 Time patient seen: 14:00 ROS Limited/Unobtainable: Yes Allergies: Coded Allergies: GABAPENTIN (Unverified Allergy, Unknown, 03/28/17) PRAMIPEXOLE (Unverified Allergy, Unknown, 03/28/17) Uncoded Allergies: NEURPO (Allergy, Unknown, 03/28/17) Subjective Pt awake, alert but intermittently confused. Less agitated Family was at bedside Unable to obtain ROS Objective Last 24 Hour Vital Signs Date Time Temp Pulse Resp B/P Pulse Ox O2 Delivery O2 Flow Rate FiO2 03/30/17 20:00 97.9 64 20 123/76 94 Room Air 03/30/17 18:14 71 136/71 03/30/17 15:36 97.9 71 15 136/71 94 Room Air 03/30/17 11:35 97.7 69 15 116/71 Room Air 03/30/17 10:02 74 158/95 03/30/17 07:46 98.1 74 15 158/95 95 Room Air 03/30/17 04:00 97.7 81 18 148/77 Room Air 03/29/17 23:14 82 172/99 Intake and Output 03/29/17 03/30/17 19:00 07:00 Intake Total 270 ml Output Total 300 ml Balance 270 ml -300 ml Intake Oral 270 ml Output Urine Total 300 ml # Voids 4 # Bowel Movements 1 Laboratory Tests 03/30/17 09:15: White Blood Count 7.5, Red Blood Count 3.74L, Hemoglobin 11.1L, Hematocrit 35.1L , Mean Corpuscular Volume 94, Mean Corpuscular Hemoglobin 29.7, Mean Corpuscular Hemoglobin Concent 31.6L, Red Cell Distribution Width 14.7, Platelet Count 239, Mean Platelet Volume 5.8L, Neutrophils (%) (Auto) 72.3, Lymphocytes (%) (Auto) 20.5, Monocytes (%) (Auto) 5.7, Eosinophils (%) (Auto) 0.9, Basophils (%) (Auto) 0.6, Sodium Level 140, Potassium Level 3.6, Chloride Level 98, Carbon Dioxide Level 24, Anion Gap 18H, Blood Urea Nitrogen 15, Creatinine 0.6, Estimat Glomerular Filtration Rate , Glucose Level 101, Calcium Level 8.9, Magnesium Level 1.7 Height (Feet): 5 Height (Inches): 1.00 Weight (Pounds): 124 Objective General: alert, cooperative, no distress, appears stated age, confused Head: normocephalic, without obvious abnormality, atraumatic Eyes: conjunctivae/corneas clear. PERRL, EOM's intact Throat: lips, mucosa, and tongue normal. MMM Neck: supple, symmetrical, trachea midline, and no JVD Lungs: clear to auscultation bilaterally Heart: regular rate and rhythm, S1, S2 normal, no murmur, click, rub or gallop Abdomen: soft, non-tender, non-distended, bowel sounds normal; no masses or organomegaly Extremities: extremities normal, atraumatic, no cyanosis or edema Pulses: 2+ and symmetric Skin: skin color, texture, turgor normal; no rashes or lesions Neurologic: grossly normal, no focal deficits Minoo Ryan M.D. Mar 30, 2017 22:00
[2017-03-31] VITALS: BP 124/65
--- NOTE | 2017-03-31 00:18 | Wound Care Consultation ---
Wound Assessment Wound Assessment #1: Wound Present on Admission: Yes New Wound: No Status Change of Wound: No Wound Location Body Site Modif: mid Wound Location Body Site: sacral Wound Type: pressure ulcer Ramya Test: Does not Ramya Pressure Ulcer Stage: II - scattered Wound Thickness: Partial Thickness Wound Length: 5.5 Wound Width: 7.5 Wound Depth: 0.1 Percent of Wound Oxford/Red: 100 Wound Drainage Amount: None Wound Drainage Odor: None/Absent Tissue Surrounding Wound: Denuded Wound General Appearance: Reddened Wound Assessment #2: Wound Number: #2 Wound Present on Admission: Yes New Wound: No Status Change of Wound: No Wound Location Body Site Modif: lower Wound Location Body Site: back Wound Type: pressure ulcer Ramya Test: Does not Ramya Pressure Ulcer Stage: deep tissue injury Wound Thickness: Full Thickness Wound Length: 2.5 Wound Width: 2.5 Wound Depth: utd Percent of Wound Purple/Maroon: 100 Wound Drainage Amount: None Wound Drainage Odor: None/Absent Tissue Surrounding Wound: Intact Wound General Appearance: Asymptomatic, Reddened Wound Assessment #3: Wound Number: #3 Wound Present on Admission: Yes New Wound: No Status Change of Wound: No Wound Location Body Site Modif: right Wound Location Body Site: iliac crest Wound Type: pressure ulcer Ramya Test: Does not Ramya Pressure Ulcer Stage: III Wound Thickness: Full Thickness Wound Length: 3.5 Wound Width: 4.0 Wound Depth: 0.3 Percent of Wound Oxford/Red: 90 Percent of Wound Bed Yellow/Wh: 10 Wound Drainage Description: Serosanguineous Wound Drainage Amount: Moderate Wound Drainage Odor: None/Absent Tissue Surrounding Wound: Macerated Wound General Appearance: Reddened, Draining Wound Assessment #4: Wound Number: #4 Wound Present on Admission: Yes New Wound: No Status Change of Wound: No Wound Location Body Site Modif: right Wound Location Body Site: trochanter Ramya Test: Does not Ramya Pressure Ulcer Stage: II Wound Thickness: Partial Thickness Wound Length: 5.0 Wound Width: 2.5 Wound Depth: less than 0.1 Percent of Wound Oxford/Red: 100 Wound Drainage Description: Serosanguineous Wound Drainage Amount: Scant Wound Drainage Odor: None/Absent Tissue Surrounding Wound: Intact Wound General Appearance: Reddened, Draining Wound Assessment #5: Wound Number: #5 Wound Present on Admission: Yes New Wound: No Status Change of Wound: No Wound Location Body Site Modif: right Wound Location Body Site: ischial tuberosity Wound Type: pressure ulcer Ramya Test: Does not Ramya Pressure Ulcer Stage: III Wound Thickness: Full Thickness Wound Length: 3.0 Wound Width: 3.0 Wound Depth: 0.1 Percent of Wound Oxford/Red: 100 Wound Drainage Description: Serosanguineous Wound Drainage Amount: Scant Wound Drainage Odor: None/Absent Tissue Surrounding Wound: Macerated Wound General Appearance: Reddened, Draining Wound Comment #1 Sacral scattered stage II pressure ulcer #2 Mid Lower back DTI pressure ulcer #3 Right iliac crest stage III pressure ulcer #4 Right trochanter stage II pressure ulcer #5 Right ischial tuberosity stage III pressure ulcer Recommendation -Sacral scattered stage II pressure ulcer, Right iliac crest stage III pressure ulcer, Right trochanter stage II pressure ulcer and Right ischial tuberosity stage III pressure ulcer, Cleanse with saline, pat dry, apply Triad cream, cover with Biatain silicone daily and PRN soiled/dislodged -Local wound care per protocol for DTI on mid lower back -Keep clean and dry -Turn and reposition -Optimize nutrition -Low air loss SPR mattress -Heel protector on both heels -Offload both heels -Assess and f/u accordingly for any changes SHAHEED KIM RN Mar 31, 2017 00:18
[2017-03-31 04:00] VITALS: BP 120/72
[2017-03-31] MEDS: Sinemet 25/100 tab ORAL SCH ×3 (07:20→17:49)
[2017-03-31 08:00] VITALS: BP 157/99
[2017-03-31] MEDS: ceFAZolin 500 MG in D5W 55 ML IVP SCH ×2 (09:02→21:20)
[2017-03-31] MEDS: Vitamin B-12 500mcg tab ORAL SCH (09:03)
[2017-03-31] MEDS: Eliquis 2.5mg tablet ORAL SCH ×2 (09:03→21:20)
[2017-03-31] MEDS: Donepezil 10mg tab ORAL SCH (09:04)
[2017-03-31] MEDS: Ascorbic Acid 500mg tab ORAL SCH ×2 (09:04→17:51)
[2017-03-31] MEDS: Docusate 100mg cap ORAL SCH ×2 (09:04→21:21)
[2017-03-31] MEDS: carBAMazepine 200mg tab ORAL SCH (09:04)
[2017-03-31] MEDS: Propranolol 10mg tab ORAL SCH ×2 (09:04→17:50)
[2017-03-31 11:20] LABS: ANION GAP 10 (5-15); CARBON DIOXIDE 27 mEQ/L (20-30); CHLORIDE 101 mEQ/L (98-107); CREATININE 0.5 mg/dL (0.5-0.9); POTASSIUM 3.6 mEQ/L (3.4-4.9); SODIUM 138 mEQ/L (135-145)
[2017-03-31 11:21] LABS: CALCIUM 8.6 mg/dL (8.6-10.2); HEMOLYSIS 4; MAGNESIUM 1.8 mg/dL (1.7-2.5)
[2017-03-31 11:30] LABS: FERRITIN 422 ng/mL (13-150)
[2017-03-31] MEDS ORDERED: NS 275ml ONE (11:34)
[2017-03-31] MEDS ORDERED: Tubing IV Secondary IV ONE (11:34)
[2017-03-31 12:00] VITALS: BP 106/65
--- NOTE | 2017-03-31 13:33 | General Progress Note ---
Assessment/Plan Problem List: (1) Acute toxic metabolic encephalopathy (2) UTI (urinary tract infection) ICD Codes: N39.0 - Urinary tract infection, site not specified SNOMED: 33075212 Qualifiers: Qualified Codes: N30.00 - Acute cystitis without hematuria (3) Failure to thrive SNOMED: 62412638 Qualifiers: Qualified Codes: R62.7 - Adult failure to thrive (4) Parkinson disease ICD Codes: G20 - Parkinson's disease SNOMED: 11278262 (5) Dementia ICD Codes: F03.90 - Unspecified dementia without behavioral disturbance SNOMED: 47822021 (6) HTN (hypertension) ICD Codes: I10 - Essential (primary) hypertension SNOMED: 09778125 (7) DVT (deep venous thrombosis) ICD Codes: I82.409 - Acute embolism and thrombosis of unspecified deep veins of unspecified lower extremity SNOMED: 763473411 Status: stable Assessment/Plan Cont cefazolin (03/30-) s/p cefepime (03/28-03/30) F/u urine culture-->>100K SERRATIA FONTICOLA F/u blood cultures-->ngtd Monitor mental status and neuro exam closely Neurology consulted-->sinemet dose increased to 2 tabs TID Psych consulted F/u Vitamin D PT/OT Swallow eval--PUREED, LIKE NECTAR THICK SOUP CONSISTENCY WITH NECTAR THICK LIQUIDS Nutrition eval Wound care DC planning DVT Prophylaxis: SCD, Eliquis Code Status: Full Hospital Classification Declaration: Based on this initial evaluation, and depending on the patient's clinical course, I anticipate that this patient will require hospitalization for 1-2 days for AMS, FTT, UTI and close respiratory/ hemodynamic monitoring. Disposition: Once the patient is stable to leave the hospital, I anticipate the patient will likely be discharged to the following environment: back to SNF I spent 40 minutes on this patient's case, and >50% were dedicated to counseling and/or care coordination. Discussed with patient/family, nursing staff, SW/CM regarding clinical status, treatment course, and disposition planning. D/w SW re code status Time of note may not reflect time of encounter. Subjective Date patient seen: Mar 31, 2017 Time patient seen: 13:33 ROS Limited/Unobtainable: Yes Allergies: Coded Allergies: GABAPENTIN (Unverified Allergy, Unknown, 03/28/17) PRAMIPEXOLE (Unverified Allergy, Unknown, 03/28/17) Uncoded Allergies: NEURPO (Allergy, Unknown, 03/28/17) Subjective Pt awake, alert but intermittently confused. More calm and not agitated Unable to obtain ROS Objective Last 24 Hour Vital Signs Date Time Temp Pulse Resp B/P Pulse Ox O2 Delivery O2 Flow Rate FiO2 03/31/17 12:00 97.3 58 20 106/65 97 Room Air 03/31/17 09:04 68 157/99 03/31/17 08:00 97.2 68 20 157/99 95 Room Air 03/31/17 04:00 97.6 55 18 120/72 94 Room Air 03/31/17 00:00 97.0 53 18 124/65 95 Room Air 03/30/17 20:00 97.9 64 20 123/76 94 Room Air 03/30/17 18:14 71 136/71 03/30/17 15:36 97.9 71 15 136/71 94 Room Air Intake and Output 03/30/17 03/31/17 19:00 07:00 Intake Total 420 ml 55 ml Output Total 500 ml 1000 ml Balance -80 ml -945 ml Intake Oral 420 ml IV Total 55 ml Output Urine Total 500 ml 1000 ml Laboratory Tests 03/31/17 10:30: Sodium Level 138, Potassium Level 3.6, Chloride Level 101, Carbon Dioxide Level 27, Anion Gap 10, Blood Urea Nitrogen 12, Creatinine 0.5, Estimat Glomerular Filtration Rate , Glucose Level 106, Calcium Level 8.6, Magnesium Level 1.8, Ferritin 422H Height (Feet): 5 Height (Inches): 1.00 Weight (Pounds): 123 Objective General: alert, cooperative, no distress, appears stated age, confused Head: normocephalic, without obvious abnormality, atraumatic Eyes: conjunctivae/corneas clear. PERRL, EOM's intact Throat: lips, mucosa, and tongue normal. MMM Neck: supple, symmetrical, trachea midline, and no JVD Lungs: clear to auscultation bilaterally Heart: regular rate and rhythm, S1, S2 normal, no murmur, click, rub or gallop Abdomen: soft, non-tender, non-distended, bowel sounds normal; no masses or organomegaly Extremities: extremities normal, atraumatic, no cyanosis or edema Pulses: 2+ and symmetric Skin: skin color, texture, turgor normal; no rashes or lesions Neurologic: grossly normal, no focal deficits Minoo Ryan M.D. Mar 31, 2017 13:33
--- NOTE | 2017-03-31 14:08 | Neurology Progress Note ---
Interim History Interim History Interim History Ms. Moran feels about the same as yesterday. She denies any new problems. She got her 12 Noon dose of Sinemet a few minutes ago. She is still significantly parkinsonian. She denies any new neurologic symptoms. Review of Systems Neuro Review of Systems Benign. Objective Physical Exam Last Vital Signs Date Time Temp Pulse Resp B/P Pulse Ox O2 Delivery O2 Flow Rate FiO2 03/31/17 12:00 97.3 58 20 106/65 97 Room Air Laboratory Tests Test 03/31/17 10:30 Sodium Level 138 mEQ/L (135-145) Potassium Level 3.6 mEQ/L (3.4-4.9) Chloride Level 101 mEQ/L (98-107) Carbon Dioxide Level 27 mEQ/L (20-30) Anion Gap 10 (5-15) Blood Urea Nitrogen 12 mg/dL (7-23) Creatinine 0.5 mg/dL (0.5-0.9) Estimat Glomerular Filtration Rate mL/min (>60) Glucose Level 106 mg/dL (74-106) Calcium Level 8.6 mg/dL (8.6-10.2) Magnesium Level 1.8 mg/dL (1.7-2.5) Ferritin 422 ng/mL (13-150) H Neurologic Exam Objective PHYSICAL EXAMINATION: GENERAL: She is a well-developed, well-nourished, pleasant lady, lying in bed, in no acute distress. HEAD: Normocephalic and atraumatic. EENT: Examination benign. NECK: No neck rigidity was observed. NEUROLOGIC EXAMINATION: MENTAL STATUS EXAMINATION: She was awake and alert. She was oriented to self and hospital. She did not know the name of the hospital and had no idea what the date, month, or year was. She was able to recall 3/3 words immediately, but could only remember 1/3 words in 1 minute and 3 minutes. She was unable to tell me, who the present President was and who prior presidents were. Her mathematical skills were impaired. SPEECH: She had a moderate dysarthria. LANGUAGE: She had an anomia. CRANIAL NERVE EXAMINATION: II: The visual dale were intact to confrontation testing. III, IV & : The external ocular movements were full and the pupils 3 mm in diameter, equal, round, regular, and reactive to light. V: She had normal facial sensations and the temporales, masseters, and pterygoids functioned normally. VII: She had normal facial expressions and no facial asymmetry. VIII: She was able to hear well bilaterally and had no nystagmus. IX: The palate moved symmetrically on phonation. X: She had no hoarseness of voice. XI: The sternocleidomastoids and trapezii functioned normally. XII: The tongue was in the midline without any fasciculations or atrophy. MOTOR SYSTEM: The tone was increased in all four extremities with a significant degree of rigidity. Examination of muscle mass revealed no focal wasting, but she did have generalized muscle wasting. Examination of power was exceedingly difficult to perform because of varying degrees of cooperation. She did however have approximately grade 5-/5 power in both upper extremities. In the lower extremities, power was more difficult to test because of give-way weakness, but she had approximately grade 3/5 power in the iliopsoas muscles, grade 4/5 power in the quadriceps, grade 4-/5 power in the hamstrings, and grade 4/5 power in the ankles and toes. SENSORY EXAMINATION: This was quite inaccurate and thus could not be of much use. REFLEXES: Trace+ and bilaterally symmetrical at the biceps, triceps, and brachioradialis and 0 at both knees, and ankles. Plantar responses were flexor bilaterally. COORDINATION: Tsrlta-io-vvan testing was tremulous, but could be performed. She was unable to perform swwp-oc-ymdf testing. STANCE & GAIT: Could not be tested. ABNORMAL MOVEMENTS: Tremor (4-5 Hz): G 3/4 in both upper extremities and G 2/4 in both lower extremities, Rigidity: G 3/4 Bradykinesia:G 3/4 Hypomimia:G 3/4 Hypophonia: G 3/4 Impression/Recommendations Diagnostic Impression 1. Ms. Chely Moran is a 81-year-old, right-handed, lady, who does have a past history of hypertension, dementia, lumbosacral spine disease with lumbosacral polyradiculopathy, myofascial pain syndrome, right femoral neck fracture status post total hip replacement, deep venous thrombosis involving the lower extremities, and a Parkinson's disease, who was hospitalized for altered mental state, generalized weakness, and increased parkinsonian symptoms all related to a possible urinary tract infection. Since she has been here, she has been treated for a urinary tract infection. 2. She feels about the same as yesterday at this moment. Her Sinemet was not given on time today. 3. On neurological examination, at this time, she does have problems with orientation, recent and remote memory, higher cognitive function, and language. She also has significant lower extremity greater than upper extremity weakness , decreased deep tendon reflexes in the upper extremities with loss of deep tendon reflexes in the lower extremities, and a parkinsonian syndrome characterized by tremor, rigidity, bradykinesia, hypomimia, and hypophonia. 4. The patient's cognitive dysfunction is most probably related to her old dementia. 5. 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 6. Her Parkinson disease is poorly controlled, and unchanged compared to yesterday at this point in time. This is due to the fact that she is not getting her medicine on time. Recommendations 1. Continue present management. 2. Treatment of urinary tract infection in an aggressive manner. 3. Continue Sinemet 25/100, two tablets to be taken at 7 a.m. and 12 noon and 5 p.m - sharp! 4. Observe closely. João Caldera M.D., M[facility]. JOÃO CALDERA Mar 31, 2017 14:08
[2017-03-31 16:00] VITALS: BP 120/62
[2017-03-31] MEDS: Norco 5mg/325mg tab ORAL PRN ×2 (16:44→23:29)
[2017-03-31 20:00] VITALS: BP 107/56
[2017-04-01] VITALS: BP 108/54
[2017-04-01 04:00] VITALS: BP 118/79
[2017-04-01] MEDS: Sinemet 25/100 tab ORAL SCH ×3 (06:35→17:57)
[2017-04-01 08:29] VITALS: BP 97/56
[2017-04-01] MEDS: Docusate 100mg cap ORAL SCH ×2 (08:52→20:34)
[2017-04-01] MEDS: ceFAZolin 500 MG in D5W 55 ML IVP SCH ×2 (08:52→20:34)
[2017-04-01] MEDS: carBAMazepine 200mg tab ORAL SCH (08:53)
[2017-04-01] MEDS: Eliquis 2.5mg tablet ORAL SCH ×2 (08:53→20:35)
[2017-04-01] MEDS: Ascorbic Acid 500mg tab ORAL SCH ×2 (08:53→17:57)
[2017-04-01] MEDS: Vitamin B-12 500mcg tab ORAL SCH (08:54)
[2017-04-01] MEDS: Donepezil 10mg tab ORAL SCH (08:54)
[2017-04-01] MEDS: Propranolol 10mg tab ORAL SCH ×2 (08:54→17:57)
[2017-04-01] MEDS ORDERED: Tubing IV Secondary IV ONE (09:18)
--- NOTE | 2017-04-01 09:19 | Cardiology Report ---
APPROVED REPORT EKG Measurement Heart [id number] [id number] Normal sinus rhythm Left axis deviation Right bundle branch block Abnormal ECG
[2017-04-01 12:41] VITALS: BP 138/87
[2017-04-01] MEDS: Norco 5mg/325mg tab ORAL PRN ×2 (12:56→17:59)
--- NOTE | 2017-04-01 15:19 | Neurology Progress Note ---
Interim History Interim History Interim History Ms. Moran feels better today. Her tremor and other parkinsonian symptoms are much better. She says she got her afternoon medicine. She denies any new problems. She denies any new neurologic symptoms. Her appetite is poor. Review of Systems Neuro Review of Systems Benign. Objective Physical Exam Last Vital Signs Date Time Temp Pulse Resp B/P Pulse Ox O2 Delivery O2 Flow Rate FiO2 04/01/17 13:55 97.5 04/01/17 12:41 73 19 138/87 94 Room Air Neurologic Exam Objective PHYSICAL EXAMINATION: GENERAL: She is a well-developed, well-nourished, pleasant lady, lying in bed, in no acute distress. HEAD: Normocephalic and atraumatic. EENT: Examination benign. NECK: No neck rigidity was observed. NEUROLOGIC EXAMINATION: MENTAL STATUS EXAMINATION: She was awake and alert. She was oriented to self and hospital. She did not know the name of the hospital and had no idea what the date, month, or year was. She was able to recall 3/3 words immediately, but could only remember 1/3 words in 1 minute and 3 minutes. She was unable to tell me, who the present President was and who prior presidents were. SPEECH: She had a moderate dysarthria. LANGUAGE: She had an anomia. CRANIAL NERVE EXAMINATION: II: The visual dale were intact to confrontation testing. III, IV & : The external ocular movements were full and the pupils 3 mm in diameter, equal, round, regular, and reactive to light. V: She had normal facial sensations and the temporales, masseters, and pterygoids functioned normally. VII: She had normal facial expressions and no facial asymmetry. VIII: She was able to hear well bilaterally and had no nystagmus. IX: The palate moved symmetrically on phonation. X: She had no hoarseness of voice. XI: The sternocleidomastoids and trapezii functioned normally. XII: The tongue was in the midline without any fasciculations or atrophy. MOTOR SYSTEM: The tone was increased in all four extremities with a mild degree of rigidity. Examination of muscle mass revealed no focal wasting, but she did have generalized muscle wasting. Examination of power was exceedingly difficult to perform because of varying degrees of cooperation. She did however have approximately grade 5-/5 power in both upper extremities. In the lower extremities, power was more difficult to test because of give-way weakness, but she had approximately grade 3/5 power in the iliopsoas muscles, grade 4/5 power in the quadriceps, grade 4-/5 power in the hamstrings, and grade 4/5 power in the ankles and toes. SENSORY EXAMINATION: This was quite inaccurate and thus could not be of much use. REFLEXES: Trace+ and bilaterally symmetrical at the biceps, triceps, and brachioradialis and 0 at both knees, and ankles. Plantar responses were flexor bilaterally. COORDINATION: Mqxsip-mm-fgea testing was tremulous, but could be performed. She was unable to perform oags-bw-dxge testing. STANCE & GAIT: Could not be tested. ABNORMAL MOVEMENTS: Tremor (4-5 Hz): G 1/4 Rigidity: G 1/4 Bradykinesia:G 2/4 Hypomimia:G 2/4 Hypophonia: G 2/4 Impression/Recommendations Diagnostic Impression 1. Ms. Chely Moran is a 81-year-old, right-handed, lady, who does have a past history of hypertension, dementia, lumbosacral spine disease with lumbosacral polyradiculopathy, myofascial pain syndrome, right femoral neck fracture status post total hip replacement, deep venous thrombosis involving the lower extremities, and a Parkinson's disease, who was hospitalized for altered mental state, generalized weakness, and increased parkinsonian symptoms all related to a possible urinary tract infection. Since she has been here, she has been treated for a urinary tract infection. 2. She feels better today. The tremor is significantly better. 3. On neurological examination, at this time, she does have problems with orientation, recent and remote memory, higher cognitive function, and language. She also has significant lower extremity greater than upper extremity weakness , decreased deep tendon reflexes in the upper extremities with loss of deep tendon reflexes in the lower extremities, and a parkinsonian syndrome characterized by tremor, rigidity, bradykinesia, hypomimia, and hypophonia - however her parkinsonian signs are significantly better today. 4. The patient's cognitive dysfunction is most probably related to her old dementia. 5. 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 6. Her Parkinson's disease is better controlled today. Recommendations 1. Continue present management. 2. Treatment of urinary tract infection in an aggressive manner. 3. Continue Sinemet 25/100, two tablets to be taken at 7 a.m. and 12 noon and 5 p.m - sharp! 4. Observe closely. 5. Mobilize with PT/OT. João Caldera M.D., M[facility]. JOÃO CALDERA Apr 01, 2017 15:19
[2017-04-01 15:22] LABS: BASOPHILS % (AUTO) 0.5 % (0.0-2.0); EOSINOPHILS % (AUTO) 1.9 % (0.0-3.0); LYMPHOCYTES % (AUTO) 16.5 % (20.0-45.0); MEAN CORPUSCULAR HEMOGLOBIN 30.6 PG (27.0-31.0); MEAN CORPUSCULAR HGB CONC 32.5 G/DL (32.0-36.0); MEAN CORPUSCULAR VOLUME 94 FL (80-99); MEAN PLATELET VOLUME 5.8 FL (6.5-10.1); PLATELET COUNT 184 K/UL (150-450); RED BLOOD COUNT 3.17 M/UL (4.20-5.40); RED CELL DISTRIBUTION WIDTH 14.8 % (11.6-14.8); WHITE BLOOD COUNT 9.7 K/UL (4.8-10.8)
[2017-04-01 15:33] LABS: ANION GAP 11 (5-15); CALCIUM 8.3 mg/dL (8.6-10.2); CARBON DIOXIDE 28 mEQ/L (20-30); CHLORIDE 101 mEQ/L (98-107); CREATININE 0.5 mg/dL (0.5-0.9); HEMOLYSIS 5; MAGNESIUM 1.8 mg/dL (1.7-2.5); POTASSIUM 3.4 mEQ/L (3.4-4.9); SODIUM 140 mEQ/L (135-145)
[2017-04-01 15:36] VITALS: BP 115/62
--- NOTE | 2017-04-01 17:57 | General Progress Note ---
Assessment/Plan Problem List: (1) Acute toxic metabolic encephalopathy (2) UTI (urinary tract infection) ICD Codes: N39.0 - Urinary tract infection, site not specified SNOMED: 52242466 Qualifiers: Qualified Codes: N30.00 - Acute cystitis without hematuria (3) Failure to thrive SNOMED: 06065819 Qualifiers: Qualified Codes: R62.7 - Adult failure to thrive (4) Parkinson disease ICD Codes: G20 - Parkinson's disease SNOMED: 47557828 (5) Dementia ICD Codes: F03.90 - Unspecified dementia without behavioral disturbance SNOMED: 70494714 (6) HTN (hypertension) ICD Codes: I10 - Essential (primary) hypertension SNOMED: 31354969 (7) DVT (deep venous thrombosis) ICD Codes: I82.409 - Acute embolism and thrombosis of unspecified deep veins of unspecified lower extremity SNOMED: 406389767 Status: stable Assessment/Plan Cont cefazolin (03/30-) --> can transition to bactrim PO on d/c s/p cefepime (03/28-03/30) F/u urine culture-->>100K SERRATIA FONTICOLA, ceron sensitive F/u blood cultures-->ngtd Monitor mental status and neuro exam closely Neurology consulted-->sinemet dose increased to 2 tabs TID Psych consulted F/u Vitamin D PT/OT Swallow eval--PUREED, LIKE NECTAR THICK SOUP CONSISTENCY WITH NECTAR THICK LIQUIDS Nutrition eval Wound care DC planning, likely back to SNF on 04/02 DVT Prophylaxis: SCD, Eliquis Code Status: Full Hospital Classification Declaration: Based on this initial evaluation, and depending on the patient's clinical course, I anticipate that this patient will require hospitalization for 1-2 days for AMS, FTT, UTI and close respiratory/ hemodynamic monitoring. Disposition: Once the patient is stable to leave the hospital, I anticipate the patient will likely be discharged to the following environment: back to SNF I spent 38 minutes on this patient's case, and >50% were dedicated to counseling and/or care coordination. Discussed with patient/family, nursing staff, SW/CM regarding clinical status, treatment course, and disposition planning. Time of note may not reflect time of encounter. Subjective Date patient seen: Apr 01, 2017 Time patient seen: 13:00 ROS Limited/Unobtainable: Yes Allergies: Coded Allergies: GABAPENTIN (Unverified Allergy, Unknown, 03/28/17) PRAMIPEXOLE (Unverified Allergy, Unknown, 03/28/17) Uncoded Allergies: NEURPO (Allergy, Unknown, 03/28/17) Subjective Pt awake, alert but intermittently confused. More calm and not agitated Unable to obtain ROS Objective Last 24 Hour Vital Signs Date Time Temp Pulse Resp B/P Pulse Ox O2 Delivery O2 Flow Rate FiO2 04/01/17 15:36 97.0 62 19 115/62 94 Room Air 04/01/17 13:55 97.5 04/01/17 12:41 97.5 73 19 138/87 94 Room Air 04/01/17 08:54 71 97/56 04/01/17 08:29 97.5 71 19 97/56 93 Room Air 04/01/17 04:00 97.1 66 20 118/79 94 Room Air 04/01/17 00:00 97.2 68 20 108/54 94 Room Air 03/31/17 20:00 97.1 60 20 107/56 95 Room Air Intake and Output 03/31/17 04/01/17 19:00 07:00 Intake Total 120 ml 55 ml Output Total 900 ml 350 ml Balance -780 ml -295 ml Intake Oral 120 ml IV Total 55 ml Output Urine Total 900 ml 350 ml # Bowel Movements 1 Laboratory Tests 04/01/17 14:40: White Blood Count 9.7, Red Blood Count 3.17L, Hemoglobin 9.7L, Hematocrit 29.9L , Mean Corpuscular Volume 94, Mean Corpuscular Hemoglobin 30.6, Mean Corpuscular Hemoglobin Concent 32.5, Red Cell Distribution Width 14.8, Platelet Count 184, Mean Platelet Volume 5.8L, Neutrophils (%) (Auto) 73.0, Lymphocytes ( %) (Auto) 16.5L, Monocytes (%) (Auto) 8.0, Eosinophils (%) (Auto) 1.9, Basophils (%) (Auto) 0.5, Sodium Level 140, Potassium Level 3.4, Chloride Level 101, Carbon Dioxide Level 28, Anion Gap 11, Blood Urea Nitrogen 12, Creatinine 0.5, Estimat Glomerular Filtration Rate , Glucose Level 107H, Calcium Level 8.3L , Magnesium Level 1.8 Height (Feet): 5 Height (Inches): 1.00 Weight (Pounds): 126 Objective General: alert, cooperative, no distress, appears stated age, confused Head: normocephalic, without obvious abnormality, atraumatic Eyes: conjunctivae/corneas clear. PERRL, EOM's intact Throat: lips, mucosa, and tongue normal. MMM Neck: supple, symmetrical, trachea midline, and no JVD Lungs: clear to auscultation bilaterally Heart: regular rate and rhythm, S1, S2 normal, no murmur, click, rub or gallop Abdomen: soft, non-tender, non-distended, bowel sounds normal; no masses or organomegaly Extremities: extremities normal, atraumatic, no cyanosis or edema Pulses: 2+ and symmetric Skin: skin color, texture, turgor normal; no rashes or lesions Neurologic: grossly normal, no focal deficits Minoo Ryan M.D. Apr 01, 2017 17:57
[2017-04-01 20:00] VITALS: BP 119/65
[2017-04-01] MEDS ORDERED: Vitamin D 50,000 units cap ORAL SCH (21:00)
[2017-04-02] VITALS: BP 121/72
[2017-04-02 04:00] VITALS: BP 126/71
[2017-04-02] MEDS: Sinemet 25/100 tab ORAL SCH (06:30)
[2017-04-02 07:42] VITALS: BP 126/71
--- NOTE | 2017-04-02 08:13 | Cardiology Report ---
APPROVED REPORT EXAM: Two-dimensional and M-mode echocardiogram with Doppler and color Doppler. INDICATION Congestive Heart Failure M-Mode DIMENSIONS IVSd1.2 (0.7-1.1cm)Left Atrium (MM)2.5 (1.6-4.0cm) LVDd2.5 (3.5-5.6cm)Aortic Root2.9 (2.0-3.7cm) PWd0.7 (0.7-1.1cm)Aortic Cusp Exc.1.8 (1.5-2.0cm) LVDs1.1 (2.5-4.0cm) PWs1.0 cm Normal left ventricular chamber size, systolic function and wall motion. Left ventricular ejection fraction estimated to be 60 %. Mild left ventricular hypertrophy. Trace pericardial effusion. All other cardiac chamber sizes are within normal limits. Mild focal aortic valve sclerosis with adequate cusp excursion. Mildly thickened mitral valve leaflets with normal excursion. Mild mitral annulus and aortic root calcification. Normal pulmonic valve structure. Normal tricuspid valve structure. IVC is normal in size with physiologic collapse. A color flow and spectral Doppler study was performed and revealed: Trace aortic regurgitation. Trace mitral regurgitation. Mitral diastolic velocities suggest reduced left ventricular relaxation (Grade I). Trace tricuspid regurgitation. Tricuspid systolic velocities suggests peak right ventricular systolic pressure of 21 mmHg. No pulmonic regurgitation present.
[2017-04-02] MEDS: carBAMazepine 200mg tab ORAL SCH (08:49)
[2017-04-02] MEDS: ceFAZolin 500 MG in D5W 55 ML IVP SCH (08:49)
[2017-04-02] MEDS: Donepezil 10mg tab ORAL SCH (08:49)
[2017-04-02] MEDS: Ascorbic Acid 500mg tab ORAL SCH (08:49)
[2017-04-02] MEDS: Eliquis 2.5mg tablet ORAL SCH (08:50)
[2017-04-02] MEDS: Propranolol 10mg tab ORAL SCH (08:50)
[2017-04-02] MEDS: Vitamin B-12 500mcg tab ORAL SCH (08:50)
[2017-04-02] MEDS: Docusate 100mg cap ORAL SCH (08:50)
[2017-04-02] MEDS ORDERED: SINEMET 25/1001 EA ORAL (10:55)
[2017-04-02] MEDS ORDERED: VITAMIN D250000 UNI1 ORAL (10:55)
[2017-04-02] MEDS ORDERED: BACTRIM DS TAB1 EAC1 ORAL (10:55)
[2017-04-02] MEDS ORDERED: ELIQUIS5 MG PO (10:57)
--- NOTE | 2017-04-02 11:19 | Neurology Progress Note ---
Interim History Interim History Interim History Ms. Moran continues to feel better. Her tremor and other parkinsonian symptoms are better than when she came in but not as good as yesterday.. She denies any new problems. She denies any new neurologic symptoms. Her appetite is poor. Plans are to go back to her NH today. Review of Systems Neuro Review of Systems Benign. Objective Physical Exam Last Vital Signs Date Time Temp Pulse Resp B/P Pulse Ox O2 Delivery O2 Flow Rate FiO2 04/02/17 08:50 69 126/71 04/02/17 07:42 98.4 20 94 Room Air Laboratory Tests Test 04/01/17 14:40 White Blood Count 9.7 K/UL (4.8-10.8) Red Blood Count 3.17 M/UL (4.20-5.40) L Hemoglobin 9.7 G/DL (12.0-16.0) L Hematocrit 29.9 % (37.0-47.0) L Mean Corpuscular Volume 94 FL (80-99) Mean Corpuscular Hemoglobin 30.6 PG (27.0-31.0) Mean Corpuscular Hemoglobin Concent 32.5 G/DL (32.0-36.0) Red Cell Distribution Width 14.8 % (11.6-14.8) Platelet Count 184 K/UL (150-450) Mean Platelet Volume 5.8 FL (6.5-10.1) L Neutrophils (%) (Auto) 73.0 % (45.0-75.0) Lymphocytes (%) (Auto) 16.5 % (20.0-45.0) L Monocytes (%) (Auto) 8.0 % (1.0-10.0) Eosinophils (%) (Auto) 1.9 % (0.0-3.0) Basophils (%) (Auto) 0.5 % (0.0-2.0) Sodium Level 140 mEQ/L (135-145) Potassium Level 3.4 mEQ/L (3.4-4.9) Chloride Level 101 mEQ/L (98-107) Carbon Dioxide Level 28 mEQ/L (20-30) Anion Gap 11 (5-15) Blood Urea Nitrogen 12 mg/dL (7-23) Creatinine 0.5 mg/dL (0.5-0.9) Estimat Glomerular Filtration Rate mL/min (>60) Glucose Level 107 mg/dL (74-106) H Calcium Level 8.3 mg/dL (8.6-10.2) L Magnesium Level 1.8 mg/dL (1.7-2.5) Neurologic Exam Objective PHYSICAL EXAMINATION: GENERAL: She is a well-developed, well-nourished, pleasant lady, lying in bed, in no acute distress. HEAD: Normocephalic and atraumatic. EENT: Examination benign. NECK: No neck rigidity was observed. NEUROLOGIC EXAMINATION: MENTAL STATUS EXAMINATION: She was awake and alert. She was oriented to self and hospital. She did not know the name of the hospital and had no idea what the date, month, or year was. She was able to recall 3/3 words immediately, but could only remember them in 1 minute and 3 minutes. She was unable to tell me, who the present President was and who prior presidents were. SPEECH: She had a moderate dysarthria. LANGUAGE: She had an anomia. CRANIAL NERVE EXAMINATION: II: The visual dale were intact to confrontation testing. III, IV & : The external ocular movements were full and the pupils 3 mm in diameter, equal, round, regular, and reactive to light. V: She had normal facial sensations and the temporales, masseters, and pterygoids functioned normally. VII: She had normal facial expressions and no facial asymmetry. VIII: She was able to hear well bilaterally and had no nystagmus. IX: The palate moved symmetrically on phonation. X: She had no hoarseness of voice. XI: The sternocleidomastoids and trapezii functioned normally. XII: The tongue was in the midline without any fasciculations or atrophy. MOTOR SYSTEM: The tone was increased in all four extremities with a mild degree of rigidity. Examination of muscle mass revealed no focal wasting, but she did have generalized muscle wasting. Examination of power was exceedingly difficult to perform because of varying degrees of cooperation. She did however have approximately grade 5-/5 power in both upper extremities. In the lower extremities, power was more difficult to test because of give-way weakness , but she had approximately grade 3/5 power in the iliopsoas muscles, grade 4/5 power in the quadriceps, grade 4-/5 power in the hamstrings, and grade 4/5 power in the ankles and toes. SENSORY EXAMINATION: This was quite inaccurate and thus could not be of much use. REFLEXES: Trace+ and bilaterally symmetrical at the biceps, triceps, and brachioradialis and 0 at both knees, and ankles. Plantar responses were flexor bilaterally. COORDINATION: Dvyntx-un-vtuv testing was tremulous, but could be performed. She was unable to perform mvzy-yd-hywi testing. STANCE & GAIT: Could not be tested. ABNORMAL MOVEMENTS: Tremor (4-5 Hz): G 2/4 Rigidity: G 2/4 Bradykinesia:G 2/4 Hypomimia:G 2/4 Hypophonia: G 2/4 Impression/Recommendations Diagnostic Impression 1. Ms. Chely Moran is a 81-year-old, right-handed, lady, who does have a past history of hypertension, dementia, lumbosacral spine disease with lumbosacral polyradiculopathy, myofascial pain syndrome, right femoral neck fracture status post total hip replacement, deep venous thrombosis involving the lower extremities, and a Parkinson's disease, who was hospitalized for altered mental state, generalized weakness, and increased parkinsonian symptoms all related to a possible urinary tract infection. Since she has been here, she has been treated for a urinary tract infection. 2. She feels better generally The tremor is significantly better than ford she came in but not as good as yesterday.. 3. On neurological examination, at this time, she does have problems with orientation, recent and remote memory, higher cognitive function, and language. She also has significant lower extremity greater than upper extremity weakness , decreased deep tendon reflexes in the upper extremities with loss of deep tendon reflexes in the lower extremities, and a parkinsonian syndrome characterized by tremor, rigidity, bradykinesia, hypomimia, and hypophonia. Her parkinsonian signs are significantly better than when she came in but not as good as yesterday. 4. The patient's cognitive dysfunction is most probably related to her old dementia. 5. 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 6. Her Parkinson's disease is better controlled. Recommendations 1. Continue present management. 2. Treatment of urinary tract infection in an aggressive manner. 3. Continue Sinemet 25/100, two tablets to be taken at 7 a.m. and 12 noon and 5 p.m - sharp! 4. Mobilize with PT/OT. 5. Agree with transfer back to [place]. João Caldera M.D., M[facility]. JOÃO CALDERA Apr 02, 2017 11:19
[2017-04-02 11:24] VITALS: BP 112/65
--- NOTE | 2017-04-02 23:33 | Discharge Summary ---
Minoo Ryan M.D. 04/02/17 2333: Discharge Summary Hospital Course Date of Admission Mar 28, 2017 at 17:16 Date of Discharge Apr 02, 2017 at 13:00 Admitting Diagnosis FAILURE TO THRIVE HANS Moran is a 81 year old female who was admitted on Mar 28, 2017 at 17 :16 for Failure To Thrive Discharge Medications New Medications: Apixaban (Eliquis) 5 Mg Tablet 5 MG PO BID for 30 Days, TAB Trimethoprim/Sulfamethoxazole 160/800* (Bactrim Ds Tablet*) 1 Each Tablet 1 TAB ORAL Q12H for 4 Days, #8 TAB 0 Refills Ergocalciferol (Vitamin D2)* (Vitamin D*) 50,000 Unit Capsule 53079 INTLU ORAL Ríos@2100 for 30 Days, CAP Levodopa/Carbidopa (Carbidopa-Levodopa 25-100 Tab) 1 Each Tablet 2 EA ORAL TID@0700,1200,1700 for 30 Days, TAB Continued Medications: Alprazolam* (Xanax*) 0.25 Mg Tablet 0.25 MG ORAL BID PRN for For Anxiety, TAB Ascorbic Acid* (Ascorbic Acid*) 500 Mg Tablet 500 MG ORAL TWICE A DAY, TAB Bisacodyl (Bisacodyl) 10 Mg Supp.rect 10 MG RC DAILY PRN for Constipation, SUPP Carbamazepine* (Carbamazepine*) 200 Mg Tablet 200 MG ORAL DAILY, TAB Cyanocobalamin (Vitamin B-12)* (Vitamin B-12*) 500 Mcg Tablet 1000 MCG ORAL DAILY, #30 TAB 0 Refills Docusate Sodium* (Docusate Sodium*) 100 Mg Capsule 100 MG ORAL TWICE A DAY, CAP Donepezil Hcl* (Donepezil Hcl*) 10 Mg Tab.rapdis 10 MG ORAL DAILY, TAB Ergocalciferol (Vitamin D2)* (Vitamin D*) 50,000 Unit Capsule 67526 UNIT ORAL ONCE A WEEK, CAP Hydrocodone Bit/Acetaminophen 5-325* ([place] 5-325 Tablet*) 1 Each Tablet 1 TAB ORAL Q4H PRN for For Pain, TAB Magnesium Hydroxide* (Milk Of Magnesia*) 400 Mg/5 Ml Oral.susp 30 ML ORAL DAILY PRN for Constipation, ML Pantoprazole* (Pantoprazole*) 40 Mg Tablet.dr 40 MG ORAL DAILY, TAB Propranolol Hcl* (Inderal*) 20 Mg Tablet 20 MG ORAL BID, #90 TAB 0 Refills Quetiapine Fumarate* (Seroquel*) 25 Mg Tablet 25 MG ORAL BEDTIME, TAB Quetiapine Fumarate* (Seroquel*) 25 Mg Tablet 25 MG ORAL THREE TIMES A DAY PRN for Agitation, TAB Rosuvastatin Calcium* (Crestor*) 10 Mg Tablet 10 MG ORAL DAILY, TAB Discontinued Medications: Carbidopa/Levodopa 25-100 Mg* (Sinemet 25-100 Mg Tablet*) 1 Each Tablet 1.5 TAB ORAL THREE TIMES A DAY, TAB Enoxaparin* (Lovenox*) 60 Mg/0.6 Ml Inj 60 MG SUBQ EVERY 12 HOURS, #60 EA 0 Refills Discharge Condition Upon Discharge: stable Discharge Disposition Patient was discharged to SNF Discharge Diagnoses: Nithin (Christelle),Corazon [employer] 04/11/17 1139: Discharge Summary Discharge Medications New Medications: Apixaban (Eliquis) 5 Mg Tablet 5 MG PO BID for 30 Days, TAB Trimethoprim/Sulfamethoxazole 160/800* (Bactrim Ds Tablet*) 1 Each Tablet 1 TAB ORAL Q12H for 4 Days, #8 TAB 0 Refills Ergocalciferol (Vitamin D2)* (Vitamin D*) 50,000 Unit Capsule 13084 INTLU ORAL Ríos@2100 for 30 Days, CAP Levodopa/Carbidopa (Carbidopa-Levodopa 25-100 Tab) 1 Each Tablet 2 EA ORAL TID@0700,1200,1700 for 30 Days, TAB Continued Medications: Alprazolam* (Xanax*) 0.25 Mg Tablet 0.25 MG ORAL BID PRN for For Anxiety, TAB Ascorbic Acid* (Ascorbic Acid*) 500 Mg Tablet 500 MG ORAL TWICE A DAY, TAB Bisacodyl (Bisacodyl) 10 Mg Supp.rect 10 MG RC DAILY PRN for Constipation, SUPP Carbamazepine* (Carbamazepine*) 200 Mg Tablet 200 MG ORAL DAILY, TAB Cyanocobalamin (Vitamin B-12)* (Vitamin B-12*) 500 Mcg Tablet 1000 MCG ORAL DAILY, #30 TAB 0 Refills Docusate Sodium* (Docusate Sodium*) 100 Mg Capsule 100 MG ORAL TWICE A DAY, CAP Donepezil Hcl* (Donepezil Hcl*) 10 Mg Tab.rapdis 10 MG ORAL DAILY, TAB Ergocalciferol (Vitamin D2)* (Vitamin D*) 50,000 Unit Capsule 49577 UNIT ORAL ONCE A WEEK, CAP Hydrocodone Bit/Acetaminophen 5-325* ([place] 5-325 Tablet*) 1 Each Tablet 1 TAB ORAL Q4H PRN for For Pain, TAB Magnesium Hydroxide* (Milk Of Magnesia*) 400 Mg/5 Ml Oral.susp 30 ML ORAL DAILY PRN for Constipation, ML Pantoprazole* (Pantoprazole*) 40 Mg Tablet.dr 40 MG ORAL DAILY, TAB Propranolol Hcl* (Inderal*) 20 Mg Tablet 20 MG ORAL BID, #90 TAB 0 Refills Quetiapine Fumarate* (Seroquel*) 25 Mg Tablet 25 MG ORAL BEDTIME, TAB Quetiapine Fumarate* (Seroquel*) 25 Mg Tablet 25 MG ORAL THREE TIMES A DAY PRN for Agitation, TAB Rosuvastatin Calcium* (Crestor*) 10 Mg Tablet 10 MG ORAL DAILY, TAB Discontinued Medications: Carbidopa/Levodopa 25-100 Mg* (Sinemet 25-100 Mg Tablet*) 1 Each Tablet 1.5 TAB ORAL THREE TIMES A DAY, TAB Enoxaparin* (Lovenox*) 60 Mg/0.6 Ml Inj 60 MG SUBQ EVERY 12 HOURS, #60 EA 0 Refills Discharge Condition Upon Discharge: stable Discharge Disposition Patient was discharged to SNF Discharge Diagnoses: (1) Acute toxic metabolic encephalopathy (2) UTI (urinary tract infection), bacterial (3) Dysphagia (4) Parkinson disease (5) Dementia (6) HTN (hypertension) (7) DVT (deep venous thrombosis) Minoo Ryan M.D. Apr 02, 2017 23:33 Nithin (ReshmaCorazon cheng NP Apr 11, 2017 11:39
[2017-04-06] MEDS ORDERED: Eliquis 2.5mg tablet ORAL SCH (21:00)
== END 2017-04-02 13:00 | DRG 91 ==
LOC: EDBD 16:09 → EMR 16:40 → 4E 17:16 → EDBEDREQ 20:43
DX: G92 Toxic encephalopathy (principal); L89.213 Pressure ulcer of right hip, stage 3; L89.152 Pressure ulcer of sacral region, stage 2; G20 Parkinson's disease; L89.893 Pressure ulcer of other site, stage 3; N39.0 Urinary tract infection, site not specified; R62.7 Adult failure to thrive; R13.10 Dysphagia, unspecified; I10 Essential (primary) hypertension; Z86.718 Personal history of other venous thrombosis and embolism; F02.80 Dementia in other diseases classified elsewhere, unspecified severity, without behavioral disturbance, psychotic disturbance, mood disturbance, and anxiety; M54.16 Radiculopathy, lumbar region; M79.1 Myalgia; Z96.641 Presence of right artificial hip joint
CPT/HCPCS: 36415; 71010; 80048; 80053; 81003; 82306; 82550; 82553; 82607; 82728; 82746; 83605; 83735; 83880; 84134; 84443; 84484; 85025; 85610; 85730; 87040; 87081; 87086; 87181; 93005; 93306